=== PATIENT | male | born 1950 | race African-American/Black ===

== ENCOUNTER 2017-05-19 06:10 | Emergency (ER) | payer MEDICARE, OTHER ==
[~2017-05-19] VITALS: Ht 177.8 cm; Wt 99.3 kg
[2017-05-19 06:12] VITALS: BP 153/78; PULSE 75; RESP 14; TEMP 98; O2SAT 97
[2017-05-19 06:37] VITALS: BP 157/85; PULSE 74; RESP 18; O2SAT 95
[2017-05-19] MEDS ORDERED: LOVA10TA PO (06:45)
[2017-05-19] MEDS ORDERED: GLIP10TA6 PO (06:45)
[2017-05-19] MEDS ORDERED: AMLO5TAB2 PO (06:45)
[2017-05-19] MEDS ORDERED: ENAL5TAB PO (06:45)
--- NOTE | 2017-05-19 06:50 | PD ---
HPI Chief Complaint: Pain: Acute or Chronic Time Seen by Provider: 06:37 Travel History International Travel<30 days: No Contact w/Intl Traveler<30days: No Traveled to known affect area: No History of Present Illness HPI The patient is a 66-year-old male who complains of a sharp, pleuritic pain under his left breast. He knows it is on the inside, he cannot reproduce it by pressing on the outside of these chest. It hurts when he takes a deep breath. He denies any cough, fever, shortness of breath, tachycardia, syncope or hemoptysis. The pain feels like an achy pain. He does not smoke, he gave up smoking around 1986. PFSH Past Medical History High Cholesterol: Yes Diabetes: Yes Patient Takes Glucophage: No Diminished Hearing: No Hypertension: Yes Tetanus Vaccination: Unknown Influenza Vaccination: Yes Past Surgical History Surgical History: No Previous Surgery Social History Alcohol Use: No Tobacco Use: No Substance Use: No Allergies-Medications (Allergen,Severity, Reaction): Coded Allergies: amoxicillin (Verified Allergy, Mild, rash, 05/19/17) clavulanic acid (Verified Allergy, Mild, rash, 05/19/17) Reported Meds & Prescriptions Reported Meds & Active Scripts Active Reported Enalapril (Enalapril Maleate) 5 Mg Tab 5 Mg PO BID Amlodipine (Amlodipine Besylate) 5 Mg Tab 5 Mg PO DAILY Lovastatin 10 Mg Tab 10 Mg PO DAILY Glipizide 10 Mg Tab 10 Mg PO DAILY Take 30 minutes before a meal Review of Systems Except as stated in HPI: all other systems reviewed are Neg Physical Exam Narrative GENERAL: The patient is alert, oriented 3 in minimal apparent distress with his left chest pain. His vital signs show blood pressure 153/78 but are otherwise normal. SKIN: Focused skin assessment warm/dry. HEAD: Atraumatic. Normocephalic. EYES: Pupils equal and round. No scleral icterus. No injection or drainage. ENT: No nasal bleeding or discharge. Mucous membranes pink and moist. NECK: Trachea midline. No JVD. CARDIOVASCULAR: Regular rate and rhythm. No murmur appreciated. RESPIRATORY: No accessory muscle use. Clear to auscultation. Breath sounds equal bilaterally. I cannot reproduce the patient's pain by pressing on the chest wall. GASTROINTESTINAL: Abdomen soft, non-tender, nondistended. Hepatic and splenic margins not palpable. MUSCULOSKELETAL: No obvious deformities. No clubbing. No cyanosis. No edema. NEUROLOGICAL: Awake and alert. No obvious cranial nerve deficits. Motor grossly within normal limits. Normal speech. PSYCHIATRIC: Appropriate mood and affect; insight and judgment normal. Data Data Last Documented VS Vital Signs Date Time Temp Pulse Resp B/P (MAP) Pulse Ox O2 Delivery O2 Flow Rate FiO2 05/19/17 06:37 74 18 157/85 (109) 95 Room Air 05/19/17 06:12 98.0 Orders Orders Chest, Pa & Lat (05/19/17 06:42) Ketorolac Inj (Toradol Inj) (05/19/17 07:00) Electrocardiogram (05/19/17 06:55) MDM Medical Decision Making Medical Screen Exam Complete: Yes Emergency Medical Condition: Yes Medical Record Reviewed: Yes Interpretation(s) The PA and lateral chest x-ray shows a linear opacity at the bases characteristic of atelectasis. There is no effusion and no pneumothorax. The EKG shows occasional PVCs but is otherwise normal, the rate is sinus rhythm with a rate of 70. There is no acute ST elevation or depression. Differential Diagnosis Pleurisy, chest wall pain, acute coronary syndrome- highly unlikely, pulmonary embolus-highly unlikely Narrative Course The patient appears to have pleurisy. The sharp, pleuritic pain is characteristic and there is no clinical or radiographic or EKG evidence for any of the above considerations. Additional Instructions: The Motrin is one tablet 3 times a day. If you take them regularly for a few days the pain usually improves. Med/Other Pt SpecificInfo: Prescription(s) given Scripts Ibuprofen (Ibuprofen) 800 Mg Tab 800 MG PO TID, #33 TAB 0 Refills Prov: Janak Iglesias MD 05/19/17 Disposition: 01 DISCHARGE HOME Condition: Stable Janak Iglesias MD May 19, 2017 06:50
--- NOTE | 2017-05-19 06:57 | RADRPT ---
EXAM DATE/TIME: 05/19/2017 06:46 [facility] COMPARISON: No previous studies available for comparison. INDICATIONS : Chest pain. MEDICAL HISTORY : None. SURGICAL HISTORY : None. ENCOUNTER: Initial ACUITY: 1 day PAIN SCORE: 5/10 LOCATION: Left chest FINDINGS: PA and lateral views of the chest demonstrate linear atelectasis and scarring at the lung bases. No e ffusion. No pneumothorax. Heart size normal. CONCLUSION: 1. Linear opacity at the bases most characteristic of atelectasis. No effusion. No pneumothorax. Bc Cisneros MD on May 19, 2017 at 6:55 Board Certified Radiologist. This report was verified electronically.
[2017-05-19] MEDS ORDERED: KETOROLAC TROMETHAMINE 60 MG/2 ML (IM) VIAL IM ONE (07:00)
[2017-05-19] MEDS ORDERED: IBUP800T23 PO (07:11)
--- NOTE | 2017-05-19 19:31 | EKG ---
Date Performed: 05/19/2017 Time Performed: 07:04:48 PTAGE: 66 years EKG: Sinus rhythm WITH OCCASIONAL VENTRICULAR PREMATURE COMPLEXES BORDERLINE ECG NO PREVIOUS TRACING DOCTOR: Milo Dooley Interpretating Date/Time 05/19/2017 19:30:54
== END 2017-05-19 07:53 | disposition home or self-care (01) ==
LOC: PHED 06:10
DX: R07.81 Pleurodynia (principal); Z88.0 Allergy status to penicillin; E11.9 Type 2 diabetes mellitus without complications; I10 Essential (primary) hypertension; E78.00 Pure hypercholesterolemia, unspecified
CPT/HCPCS: 71020; 93005; 96372; 99284; J1885